=== PATIENT | male | born 2000 | race Caucasian/White ===

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

== ENCOUNTER 2022-01-01 16:59 | Emergency (ER) | payer BC, OTHER, SELFPAY ==
[~2022-01-01] VITALS: Ht 165.1 cm; Wt 60.1 kg
[2022-01-01] MEDS ORDERED: AMOX875T2 PO (18:48)
[2022-01-01] MEDS ORDERED: KETOROLAC 30 MG/ML 1ML VIAL IM ONE (18:50)
[2022-01-01] MEDS ORDERED: AUGMENTIN 875 MG TAB PO ONE (18:50)
[2022-01-01 19:29] VITALS: BP 122/71
== END 2022-01-01 19:32 | disposition home or self-care (01) ==
LOC: M ED 16:59
DX: K04.7 Periapical abscess without sinus (principal); F17.210 Nicotine dependence, cigarettes, uncomplicated
CPT/HCPCS: 96372; 99283; J1885

== ENCOUNTER 2023-03-26 17:11 | Emergency (ER) | payer BC ==
[~2023-03-26] VITALS: Ht 167.6 cm; Wt 58.6 kg
[~2023-03-26 17:11] MED LIST: AMOX875T2 PO
[2023-03-26 17:32] VITALS: BP 155/74; TEMP 98.3; O2SAT 99
[2023-03-27] MEDS ORDERED: NAPR-837 PO (07:35)
[2023-03-27] MEDS ORDERED: ASPE4PAD TOP (07:35)
[2023-03-27] MEDS ORDERED: METH-1165 PO (07:35)
== END 2023-03-26 22:23 | disposition left against medical advice (07) ==
LOC: M ED 17:11 → EDBD 17:11 → M ED 22:23
DX: Z53.21 Procedure and treatment not carried out due to patient leaving prior to being seen by health care provider (principal)

== ENCOUNTER 2023-03-26 19:52 | Emergency (ER) | payer BC ==
[~2023-03-26] VITALS: Ht 167.6 cm; Wt 57.2 kg
[2023-03-26 19:54] VITALS: TEMP 98.5
[2023-03-27] MEDS ORDERED: LIDOCAINE 5% (LIDODERM) PATCH TD ONE (07:25)
[2023-03-27] MEDS ORDERED: KETOROLAC 60MG 2ML VIAL IM ONE (07:25)
[2023-03-27] MEDS ORDERED: NAPR-837 PO (07:35)
[2023-03-27] MEDS ORDERED: ASPE4PAD TOP (07:35)
[2023-03-27] MEDS ORDERED: METH-1165 PO (07:35)
[2023-03-27 07:52] VITALS: BP 119/76; O2SAT 100
== END 2023-03-27 07:55 | disposition home or self-care (01) ==
LOC: M ED 19:52
DX: S39.92XA Unspecified injury of lower back, initial encounter (principal); V58.2XXA Person on outside of pick-up truck or van injured in noncollision transport accident in nontraffic accident, initial encounter; Y92.410 Unspecified street and highway as the place of occurrence of the external cause; Y93.89 Activity, other specified; Y99.0 Civilian activity done for income or pay; F90.9 Attention-deficit hyperactivity disorder, unspecified type; F17.200 Nicotine dependence, unspecified, uncomplicated
CPT/HCPCS: 72131; 96372; 99283; J1885

== ENCOUNTER 2023-12-06 15:45 | Inpatient (IN) | payer BC, OTHER, SELFPAY ==
[~2023-12-06] VITALS: Ht 167.6 cm; Wt 57.4 kg
[~2023-12-06 15:45] MED LIST changes: +ASPE4PAD TOP; +METH-1165 PO; +NAPR-837 PO
[2023-12-06 16:18] LABS: HEMATOCRIT 41.3 % (42.0-52.0); HEMOGLOBIN 14.5 g/dl (13.5-17.5); MEAN CORPUSCULAR HEMOGLOBIN 31.2 pg (27.0-33.0); MEAN CORPUSCULAR HGB CONC 35.1 g/dl (32.0-36.5); MEAN CORPUSCULAR VOLUME 88.8 fl (80.0-96.0); PLATELET COUNT, AUTOMATED 227 10^3/uL (150-450); RED BLOOD COUNT 4.65 10^6/uL (4.30-6.10); WHITE BLOOD COUNT 8.3 10^3/uL (4.0-10.0)
[2023-12-06 16:45] LABS: ETHYL ALCOHOL (ETHANOL) 0.004 % (0.000-0.010)
[2023-12-06 16:46] LABS: ALBUMIN 3.9 G/DL (3.2-5.2); ALKALINE PHOSPHATASE 58 U/L (46-116); ALT/SGPT 23 U/L (7.0-40); AST/SGOT 15 U/L (<34); BILIRUBIN,DIRECT < 0.1 MG/DL (<0.4); BILIRUBIN,TOTAL 0.2 MG/DL (0.3-1.2); BLOOD UREA NITROGEN 8 MG/DL (9-23); CALCIUM LEVEL 9.5 MG/DL (8.5-10.1); CARBON DIOXIDE LEVEL 28 MMOL/L (20-31); CHLORIDE LEVEL 109 MMOL/L (98-107); GLOMERULAR FILTRATION RATE > 60.0 (>60); GLUCOSE, FASTING 118 MG/DL (60-100); POTASSIUM SERUM 3.9 MMOL/L (3.5-5.1); SALICYLATE LEVEL < 3.0 MG/DL (<30); SODIUM LEVEL 145 MMOL/L (136-145); TOTAL PROTEIN 6.1 G/DL (5.7-8.2)
[2023-12-06 16:51] LABS: THYROID STIMULATING HORMONE 0.111 uIU/ML (0.55-4.78)
[2023-12-06 16:56] LABS: AMPHETAMINES LEVEL URINE NEGATIVE (NEGATIVE); BARBITURATES URINE NEGATIVE (NEGATIVE)
[2023-12-06 16:57] LABS: BENZODIAZEPINES URINE NEGATIVE (NEGATIVE); COCAINE METABOLITE URINE NEGATIVE (NEGATIVE); METHADONE URINE NEGATIVE (NEGATIVE); OPIATES URINE NEGATIVE (NEGATIVE); PHENCYCLIDINE URINE NEGATIVE (NEGATIVE)
[2023-12-06 16:58] LABS: CANNABINOIDS URINE POSITIVE (NEGATIVE)
[2023-12-06] MEDS ORDERED: HOME MED LIST COMPLETE! XX SCH (18:10)
[2023-12-07] MEDS ORDERED: MOM 30ML SUSPENSION UDC PO PRN (13:20)
[2023-12-07] MEDS ORDERED: IBUPROFEN 400MG TAB PO PRN (13:20)
[2023-12-07] MEDS ORDERED: ACETAMINOPHEN TAB 650MG DOSE (2X325MG) PO PRN (13:20)
[2023-12-07] MEDS ORDERED: diphenhydrAMINE 25MG CAP PO PRN (13:20)
[2023-12-07] MEDS ORDERED: traZODone 50 MG TAB PO PRN (13:20)
[2023-12-07] MEDS ORDERED: MAALOX 30 ML SUSP *UDC PO PRN (13:20)
[2023-12-07 14:10] VITALS: BP 130/81; TEMP 97.5; O2SAT 100
[2023-12-08 06:48] VITALS: BP 120/75; TEMP 97.4; O2SAT 100
[2023-12-08] MEDS: NICOTINE 14 MG/24 HR TRANSDERMAL TD SCH (09:00)
[2023-12-08 11:14] LABS: FREE T4 1.07 NG/DL (0.89-1.76); THYROXINE (T4) 6.8 UG/DL (4.5-10.9)
[2023-12-08 16:37] VITALS: BP 125/75; TEMP 98.2; O2SAT 97
[2023-12-09 06:48] VITALS: BP 109/78; TEMP 98.2; O2SAT 99
[2023-12-10 17:54] VITALS: BP 131/84; TEMP 97.9; O2SAT 95
== END 2023-12-11 11:45 | disposition home or self-care (01) | DRG 751 ==
LOC: M ED 15:45 → M ED INP 12-07 13:20 → M PSY 12-07 14:14
PROVIDERS: ADMIT Student in an Organized Health Care Education/Training Program; ATTEND Student in an Organized Health Care Education/Training Program
DX: F29 Unspecified psychosis not due to a substance or known physiological condition (principal); F90.9 Attention-deficit hyperactivity disorder, unspecified type; R45.851 Suicidal ideations; F17.200 Nicotine dependence, unspecified, uncomplicated; Z81.1 Family history of alcohol abuse and dependence

== ENCOUNTER 2024-01-01 08:45 | Inpatient (IN) | payer OTHER ==
[~2024-01-01] VITALS: Ht 167.6 cm; Wt 56.9 kg
[2024-01-01] MEDS: NS 1,000 ML IV ONE ×3 (09:18→14:28)
[2024-01-01 09:23] LABS: BASO # 0.1 10^3/uL (0.0-0.2); BASO % 0.4 % (0.0-1.0); EOS % 0.3 % (0.0-3.0); HEMATOCRIT 47.5 % (42.0-52.0); HEMOGLOBIN 16.5 g/dl (13.5-17.5); LYMPH # 1.7 10^3/uL (1.5-5.0); LYMPH % 14.3 % (24.0-44.0); MEAN CORPUSCULAR HEMOGLOBIN 31.1 pg (27.0-33.0); MEAN CORPUSCULAR HGB CONC 34.7 g/dl (32.0-36.5); MEAN CORPUSCULAR VOLUME 89.5 fl (80.0-96.0); MONO % 8.7 % (2.0-8.0); NEUTROPHILS % 75.7 % (36.0-66.0); PLATELET COUNT, AUTOMATED 217 10^3/uL (150-450); RED BLOOD COUNT 5.31 10^6/uL (4.30-6.10); WHITE BLOOD COUNT 11.9 10^3/uL (4.0-10.0)
[2024-01-01 09:55] LABS: ETHYL ALCOHOL (ETHANOL) < 0.003 % (0.000-0.010)
[2024-01-01 09:57] LABS: SALICYLATE LEVEL < 3.0 MG/DL (<30)
[2024-01-01 09:58] LABS: ALBUMIN 5.1 G/DL (3.2-5.2); ALKALINE PHOSPHATASE 96 U/L (46-116); ALT/SGPT 56 U/L (7.0-40); AST/SGOT 97 U/L (<34); BILIRUBIN,DIRECT 0.2 MG/DL (<0.4); BILIRUBIN,TOTAL 0.6 MG/DL (0.3-1.2); BLOOD UREA NITROGEN 15 MG/DL (9-23); CALCIUM LEVEL 9.7 MG/DL (8.5-10.1); CARBON DIOXIDE LEVEL 26 MMOL/L (20-31); CHLORIDE LEVEL 105 MMOL/L (98-107); CREATININE FOR GFR 0.71 MG/DL (0.70-1.30); GLOMERULAR FILTRATION RATE > 60.0 (>60); GLUCOSE, FASTING 97 MG/DL (60-100); POTASSIUM SERUM 3.8 MMOL/L (3.5-5.1); SODIUM LEVEL 140 MMOL/L (136-145); TOTAL PROTEIN 7.6 G/DL (5.7-8.2)
[2024-01-01 09:59] LABS: THYROID STIMULATING HORMONE 1.277 uIU/ML (0.55-4.78)
[2024-01-01 10:21] LABS: CPK CREATINE PHOSPHOKINASE 3701 U/L (46-171)
[2024-01-01] MEDS ORDERED: HOME MED LIST COMPLETE! XX SCH (11:50)
[2024-01-01 11:52] LABS: BARBITURATES URINE NEGATIVE (NEGATIVE); BENZODIAZEPINES URINE NEGATIVE (NEGATIVE); COCAINE METABOLITE URINE NEGATIVE (NEGATIVE); METHADONE URINE NEGATIVE (NEGATIVE); OPIATES URINE NEGATIVE (NEGATIVE); PHENCYCLIDINE URINE NEGATIVE (NEGATIVE)
[2024-01-01 11:53] LABS: AMPHETAMINES LEVEL URINE POSITIVE (NEGATIVE); CANNABINOIDS URINE POSITIVE (NEGATIVE)
[2024-01-01 14:03] LABS: BLOOD UREA NITROGEN 12 MG/DL (9-23); CARBON DIOXIDE LEVEL 25 MMOL/L (20-31); CHLORIDE LEVEL 110 MMOL/L (98-107); CPK CREATINE PHOSPHOKINASE 2396 U/L (46-171); CREATININE FOR GFR 0.65 MG/DL (0.70-1.30); GLOMERULAR FILTRATION RATE > 60.0 (>60); GLUCOSE, FASTING 87 MG/DL (60-100); POTASSIUM SERUM 3.7 MMOL/L (3.5-5.1); SODIUM LEVEL 141 MMOL/L (136-145)
[2024-01-01 15:56] LABS: ALBUMIN 3.5 G/DL (3.2-5.2); ALKALINE PHOSPHATASE 71 U/L (46-116); ALT/SGPT 40 U/L (7.0-40); AST/SGOT 61 U/L (<34); BILIRUBIN,DIRECT 0.3 MG/DL (<0.4); BILIRUBIN,TOTAL 0.5 MG/DL (0.3-1.2); TOTAL PROTEIN 5.7 G/DL (5.7-8.2)
[2024-01-02] MEDS ORDERED: ACETAMINOPHEN TAB 650MG DOSE (2X325MG) PO PRN (15:15)
[2024-01-02] MEDS ORDERED: MAALOX 30 ML SUSP *UDC PO PRN (15:15)
[2024-01-02] MEDS ORDERED: MOM 30ML SUSPENSION UDC PO PRN (15:15)
[2024-01-02] MEDS ORDERED: diphenhydrAMINE 25MG CAP PO PRN (15:15)
[2024-01-02] MEDS: IBUPROFEN 400MG TAB PO PRN (20:36)
[2024-01-03 06:40] VITALS: BP 112/56; TEMP 97.9; O2SAT 100
[2024-01-03] MEDS ORDERED: OLANZapine ORAL DISINTEGRATING TAB 5MG PO PRN (13:35)
[2024-01-03] MEDS: traZODone 50 MG TAB PO PRN (19:59)
[2024-01-03] MEDS: OLANZapine 5 MG TAB PO SCH (20:00)
[2024-01-04 08:34] LABS: BASO % 0.3 % (0.0-1.0); EOS # 0.1 10^3/uL (0.0-0.5); EOS % 1.5 % (0.0-3.0); HEMATOCRIT 43.2 % (42.0-52.0); HEMOGLOBIN 15.2 g/dl (13.5-17.5); LYMPH # 2.7 10^3/uL (1.5-5.0); LYMPH % 29.6 % (24.0-44.0); MEAN CORPUSCULAR HEMOGLOBIN 31.1 pg (27.0-33.0); MEAN CORPUSCULAR HGB CONC 35.2 g/dl (32.0-36.5); MEAN CORPUSCULAR VOLUME 88.3 fl (80.0-96.0); MONO # 1.3 10^3/uL (0.0-0.8); MONO % 13.8 % (2.0-8.0); NEUTROPHILS # 4.9 10^3/uL (1.5-8.5); NEUTROPHILS % 54.2 % (36.0-66.0); PLATELET COUNT, AUTOMATED 218 10^3/uL (150-450); RED BLOOD COUNT 4.89 10^6/uL (4.30-6.10); WHITE BLOOD COUNT 9.1 10^3/uL (4.0-10.0)
[2024-01-04 16:32] VITALS: BP 125/70; TEMP 98.1; O2SAT 100
[2024-01-05 06:34] VITALS: BP 117/72; TEMP 97.8; O2SAT 100
[2024-01-05 16:38] VITALS: TEMP 97.8
[2024-01-07] MEDS: INFLUENZA QUADRIVALENT PF VACCINE 0.5ML SYRINGE IM.IMMUN ONE (09:50)
[2024-01-07] MEDS ORDERED: OLAN1TAB16 PO (10:37)
== END 2024-01-07 12:04 | disposition home or self-care (01) | DRG 751 ==
LOC: EDBD 08:45 → M ED 08:45 → M ED INP 01-02 15:15 → M PSY 01-02 15:51
PROVIDERS: ADMIT Student in an Organized Health Care Education/Training Program; ATTEND Student in an Organized Health Care Education/Training Program
DX: F29 Unspecified psychosis not due to a substance or known physiological condition (principal); F15.90 Other stimulant use, unspecified, uncomplicated; F12.90 Cannabis use, unspecified, uncomplicated; F17.200 Nicotine dependence, unspecified, uncomplicated; F90.9 Attention-deficit hyperactivity disorder, unspecified type; D72.829 Elevated white blood cell count, unspecified; Z81.1 Family history of alcohol abuse and dependence; Z56.0 Unemployment, unspecified

== ENCOUNTER 2024-06-12 07:59 | Emergency (ER) | payer BC, OTHER ==
[~2024-06-12] VITALS: Ht 167.6 cm; Wt 61.9 kg
[~2024-06-12 07:59] MED LIST changes: +OLAN1TAB16 PO
[2024-06-12 08:02] VITALS: BP 134/91; TEMP 98.4; O2SAT 97
[2024-06-12] MEDS ORDERED: PALI1TAB3 (08:06)
[2024-06-12 09:20] LABS: HEPATITIS B SURFACE ANTIBODY POSITIVE (POSITIVE)
[2024-06-12 09:32] LABS: HEPATITIS B SURFACE ANTIGEN NEGATIVE (NEGATIVE)
[2024-06-12 09:44] LABS: HIV 1&2 SCREEN NEGATIVE (NEGATIVE)
[2024-06-12 09:53] LABS: HEPATITIS C VIRUS ABY INDEX < 0.02 INDEX (<0.8)
[2024-06-12 10:05] LABS: Trichomonas vaginalis (AMP) NOT DETECTED (NEGATIVE)
[2024-06-12 10:28] LABS: GC DNA AMPLIFICATION NEGATIVE (NEGATIVE)
== END 2024-06-12 10:35 | disposition home or self-care (01) ==
LOC: M ED 07:59
DX: Z11.3 Encounter for screening for infections with a predominantly sexual mode of transmission (principal); F20.9 Schizophrenia, unspecified; F17.200 Nicotine dependence, unspecified, uncomplicated

== ENCOUNTER 2024-11-11 18:21 | Emergency (ER) | payer OTHER ==
[~2024-11-11] VITALS: Ht 167.6 cm; Wt 63.7 kg
[~2024-11-11 18:21] MED LIST changes: +PALI1TAB3
[2024-11-11 18:24] VITALS: BP 142/101; TEMP 98.5; O2SAT 99
== END 2024-11-11 20:14 | disposition home or self-care (01) ==
LOC: M ED 18:21
DX: F43.0 Acute stress reaction (principal); F17.200 Nicotine dependence, unspecified, uncomplicated; F12.10 Cannabis abuse, uncomplicated; Z79.899 Other long term (current) drug therapy

== ENCOUNTER 2024-12-23 20:00 | Emergency (ER) | payer OTHER ==
[~2024-12-23] VITALS: Ht 165.1 cm; Wt 61.8 kg
[2024-12-23 22:41] VITALS: TEMP 98.7
[2024-12-24 00:02] VITALS: BP 132/75
[2024-12-24 00:15] VITALS: O2SAT 98
[2024-12-24] MEDS ORDERED: HYDR-3713 PO (00:35)
[2024-12-24] MEDS ORDERED: NAPR-837 PO (00:35)
[2024-12-24] MEDS: NORCO, ANEXSIA 5/325MG TABLET (HYDROcodone/ACETAMINOPHEN) PO ONE (00:49)
[2024-12-24] MEDS: BOOSTRIX VACCINE (TETANUS/DIPHTH/ACEL. PERTUSSIS) 0.5ML SYR IM.IMMUN ONE (00:50)
[2024-12-24] MEDS: BACITRACIN OINTMENT 30GM TUBE TOP ONE (00:51)
== END 2024-12-24 01:04 | disposition home or self-care (01) ==
LOC: M ED 20:00
DX: S80.01XA Contusion of right knee, initial encounter (principal); S80.211A Abrasion, right knee, initial encounter; S80.212A Abrasion, left knee, initial encounter; M25.461 Effusion, right knee; W19.XXXA Unspecified fall, initial encounter; Y92.410 Unspecified street and highway as the place of occurrence of the external cause; Y93.51 Activity, roller skating (inline) and skateboarding; Y99.9 Unspecified external cause status; F32.A Depression, unspecified; Z79.899 Other long term (current) drug therapy

== ENCOUNTER 2025-03-01 00:16 | Inpatient (IN) | payer OTHER ==
[~2025-03-01] VITALS: Ht 167.6 cm; Wt 59.0 kg
[~2025-03-01 00:16] MED LIST changes: +HYDR-3713 PO; -PALI1TAB3; +PALI1TAB3 PO
[2025-03-01 01:03] LABS: PLATELET COUNT, AUTOMATED 245 10^3/uL (150-450)
[2025-03-01 01:30] LABS: ETHYL ALCOHOL (ETHANOL) 0.003 % (0.000-0.010)
[2025-03-01 01:31] LABS: SALICYLATE LEVEL < 3.0 MG/DL (<30)
[2025-03-01 01:32] LABS: ALT/SGPT 9 U/L (7.0-40); AST/SGOT 14 U/L (<34); CALCIUM LEVEL 10.0 MG/DL (8.5-10.1); CARBON DIOXIDE LEVEL 25 MMOL/L (20-31); CHLORIDE LEVEL 107 MMOL/L (98-107); CREATININE FOR GFR 1.03 MG/DL (0.70-1.30); GLOMERULAR FILTRATION RATE > 90.0 (>60); POTASSIUM SERUM 3.7 MMOL/L (3.5-5.1); SODIUM LEVEL 144 MMOL/L (136-145)
[2025-03-01 01:33] LABS: AMPHETAMINES LEVEL URINE NEGATIVE (NEGATIVE)
[2025-03-01 01:34] LABS: BARBITURATES URINE NEGATIVE (NEGATIVE); BENZODIAZEPINES URINE NEGATIVE (NEGATIVE); COCAINE METABOLITE URINE NEGATIVE (NEGATIVE); METHADONE URINE NEGATIVE (NEGATIVE); OPIATES URINE NEGATIVE (NEGATIVE)
[2025-03-01 01:35] LABS: CANNABINOIDS URINE NEGATIVE (NEGATIVE); PHENCYCLIDINE URINE NEGATIVE (NEGATIVE)
[2025-03-01] MEDS ORDERED: HOME MED LIST COMPLETE! XX SCH (03:10)
[2025-03-01] MEDS ORDERED: MAALOX 30 ML SUSP *UDC PO PRN (06:45)
[2025-03-01] MEDS ORDERED: MOM 30 ML SUSPENSION UDC PO PRN (06:45)
[2025-03-01] MEDS ORDERED: ACETAMINOPHEN 325 MG TAB PO PRN (06:45)
[2025-03-01] MEDS ORDERED: IBUPROFEN 400 MG TAB PO PRN (06:45)
[2025-03-01 09:30] VITALS: BP 128/90; TEMP 98.1; O2SAT 99
[2025-03-01] MEDS: PALIPERIDONE 6MG ER TAB PO SCH (10:10)
[2025-03-02] MEDS: NICOTINE POLACRILEX 2 MG GUM PO PRN (14:59)
[2025-03-02] MEDS: traZODone 50 MG TAB PO PRN (21:34)
[2025-03-03 15:12] VITALS: BP 135/67; TEMP 98.1; O2SAT 97
[2025-03-03] MEDS: traZODone 50 MG TAB PO PRN (21:44)
[2025-03-04 17:31] VITALS: BP 125/82; TEMP 97.5; O2SAT 98
[2025-03-05] MEDS ORDERED: PALIPERIDONE PAL 234MG/1.5ML INJ (FREE PSY INPT ONLY) IM ONE (15:05)
[2025-03-06 06:29] VITALS: BP 128/88; TEMP 97.7; O2SAT 99
[2025-03-06] MEDS: PALIPERIDONE PAL 234MG/1.5ML INJ (FREE PSY INPT ONLY) IM SCH (13:19)
[2025-03-06 15:18] VITALS: BP 118/75; TEMP 98.6; O2SAT 100
[2025-03-07 15:12] VITALS: BP 127/78; TEMP 98.3; O2SAT 97
[2025-03-09 16:23] VITALS: BP 104/70; TEMP 98.1; O2SAT 99
[2025-03-09] MEDS: PALIPERIDONE PAL 156MG/1ML INJ (FREE PSY INPT ONLY) IM ONE (18:14)
[2025-03-10 15:21] VITALS: BP 136/82; TEMP 98.2; O2SAT 100
[2025-03-11] MEDS ORDERED: INVE234I IM (10:52)
== END 2025-03-11 14:05 | disposition home or self-care (01) | DRG 750 ==
LOC: M ED 00:16 → M ED INP 06:44 → M PSY 09:28
PROVIDERS: ADMIT General Practice; ATTEND General Practice
DX: F25.0 Schizoaffective disorder, bipolar type (principal); F41.9 Anxiety disorder, unspecified; F12.10 Cannabis abuse, uncomplicated; R45.851 Suicidal ideations; R45.850 Homicidal ideations; Z79.899 Other long term (current) drug therapy; F90.9 Attention-deficit hyperactivity disorder, unspecified type; Z90.49 Acquired absence of other specified parts of digestive tract; Z56.0 Unemployment, unspecified

== ENCOUNTER 2025-04-10 17:14 | Outpatient (CLI) | payer OTHER ==
[~2025-04-10] VITALS: Ht 167.6 cm; Wt 59.0 kg
[~2025-04-10 17:14] MED LIST changes: +INVE234I IM
[2025-04-10] MEDS: INVEGA SUSTENNA 234 MG/1.5 ML IM ONE (17:32)
== END 2025-04-10 17:40 ==
LOC: M INFU 17:14
PROVIDERS: ATTEND General Practice
DX: F25.0 Schizoaffective disorder, bipolar type (principal)